=== PATIENT | female | born 1980 | race Two or more races ===

== ENCOUNTER 2021-04-08 18:45 | Emergency (ER) | payer BC ==
[2021-04-08] MEDS ORDERED: SODIUM CHLORIDE 0.9% 1,000 ML IV STA (19:07)
[2021-04-08] MEDS ORDERED: diphenhydrAMINE INJ 50 MG/ML VIAL IVP STA (19:07)
[2021-04-08] MEDS ORDERED: METOCLOPRAMIDE 10 MG/2 ML VIAL IVP STA (19:07)
--- NOTE | 2021-04-08 19:07 | ED Physician Documentation ---
History of Present Illness - Stated complaint Stated Complaint: VOMITING - Chief complaint Chief Complaint: General - History obtained from History obtained from: Patient - Additonal information Additional information: 41-year-old woman with history of migraines although it has been quite sometime since she has had a headache this bad. It is not the worst headache of her life though. She was awoken this morning by headache and then it progressed over the next half hour ago or so and started vomiting and having light sensitivity. The headache has defervesced somewhat but she is still quite nauseous. No fevers or neck stiffness. Review of Systems Constitutional: denies: Fever, Chills, Myalgias, Fatigue Eyes: reports: Photophobia Nose: denies: Rhinorrhea / runny nose PD PAST MEDICAL HISTORY - Past Medical History Past Medical History: Yes Neuro: Migraines - Past Surgical History Past Surgical History: No - Present Medications Home Medications: Ambulatory Orders Medication Instructions Recorded Confirmed No Known Home Medications 04/08/21 04/08/21 - Allergies Allergies/Adverse Reactions: Allergies Allergy/AdvReac Type Severity Reaction Status Date / Time No Known Drug Allergies Allergy Verified 04/08/21 18:54 - Social History Does the pt smoke?: No Smoking Status: Never smoker Does the pt drink ETOH?: Yes Does the pt have substance abuse?: No - Immunizations Immunizations are current?: Yes - POLST Patient has POLST: No PD ED PE NORMAL - Vitals Vital signs reviewed: Yes - General General: Alert and oriented X 3 (Peers uncomfortable and very slightly photo phobic) - HEENT HEENT: PERRL, EOMI - Neck Neck: Supple, no meningeal sign, No bony TTP - Cardiac Cardiac: RRR, No murmur - Respiratory Respiratory: No respiratory distress, Clear bilaterally - Abdomen Abdomen: Normal bowel sounds, Soft, Non tender - Derm Derm: Normal color, Warm and dry - Extremities Extremities: No edema, No calf tenderness / cord - Neuro Neuro: Alert and oriented X 3, scrap wheeler 2-12 intact, No motor deficit, No sensory deficit, Normal speech Eye Opening: Spontaneous Motor: Obeys Commands Verbal: Oriented GCS Score: 15 Results - Vitals Vitals: Vital Signs - 24 hr 04/08/21 04/08/21 18:50 19:02 Temperature 36.3 C L Heart Rate 87 94 Respiratory 18 16 Rate Blood Pressure 142/82 H 125/82 H O2 Saturation 100 100 Oxygen O2 Source Room air PD MEDICAL DECISION MAKING - ED course ED course: 41-year-old woman presents with what is likely a migraine headache. Nothing in the history or physical to suggest subarachnoid hemorrhage or meningitis. She was administered IV fluids, Reglan, Benadryl with complete relief of her symptoms. Departure - Departure Disposition: 01 Home, Self Care Clinical Impression: Migraine headache Qualifiers: Migraine type: without aura Status migrainosus presence: with status migrainosus Intractability: not intractable Qualified Code(s): G43.001 - Migraine without aura, not intractable, with status migrainosus Condition: Good Record reviewed to determine appropriate education?: Yes Instructions: ED Headache Migraine Comments: Return for new or worsening symptoms. Follow-up with your doctor on return home.
[2021-04-08 19:59] VITALS: BP 107/68
== END 2021-04-08 20:07 | disposition home or self-care (01) ==
LOC: ED 18:45
DX: G43.001 Migraine without aura, not intractable, with status migrainosus (principal)
CPT/HCPCS: 96361; 96374; 96375; 99283; 99284; J1200; J2765